=== PATIENT | male | born 1950 | race Caucasian/White ===

== ENCOUNTER 2021-06-13 06:30 | Day surgery (SDC) | payer MEDICARE, BC ==
[~2021-06-13 06:30] MED LIST: Midazolam 1 MG/ML 2 ML SDV ONE; fentaNYL 100 MCG/2 ML SDV ONE
[2021-06-13] MEDS ORDERED: fentaNYL 100 MCG/2 ML SDV IV ONE ×3 (06:31→07:46)
[2021-06-13] MEDS ORDERED: Midazolam 1 MG/ML 2 ML SDV IV ONE ×7 (06:31→08:06)
[2021-06-13] MEDS ORDERED: Sodium Chloride 0.9% 10 ML Syringe FLUSH PRN (07:35)
[2021-06-13] MEDS ORDERED: Dextrose 5%-0.45% NaCl 1,000 ML IV SCH (07:45)
--- NOTE | 2021-06-13 09:17 | OR ---
DATE: 06/13/2021 PROCEDURES: Total colonoscopy, narrow band imaging, and cold snare polypectomy. INSTRUMENT USED: PCF-H190DL Olympus video colonoscope. PREMEDICATIONS: Fentanyl 100 mcg intravenous, Versed 4 mg intravenous. Nasal O2 cannula. The procedure was done under pulse oximetry, BP recording, and finance specialist. INDICATION: The patient with positive FIT. Colonoscopic examination is done for detection of any polypoid lesions and removal, endoscopic hemostasis therapy if needed. DESCRIPTION OF PROCEDURE: Initial rectal exam was unremarkable. Rigid anoscopy was normal. The colonoscope was passed with ease. In the distal rectum, 5 mm sized benign-appearing polyp was noted, NBI views were obtained, cold snare polypectomy was done, the tissue was retrieved and sent for histopathology. The scope was passed with relative ease up to the ileocecal area. Photographs were taken of the normal-appearing cecum identified by landmarks of appendiceal orifice and double-bulged ileocecal folds. No bleeding was noted from any of the visualized areas at the commencement of the examination. The bowel preparation was found to be adequate, [place] scale 2 in right and left colon, 3 in transverse colon, total score 7. No stricture. No vascular ectasia. No large isolated ulcerations seen. No evidence of diffuse inflammatory bowel disease in the form of friability, contact bleeding, or ulcerations. Probing the proximal sides of folds and flexures using adequate distention and clearing up the stool material, withdrawal of the scope was made, cecum to rectum time over 9 minutes. No bleeding was noted from any of the visualized areas at the completion of examination. IMPRESSION: Rectal polyp. The patient tolerated the procedure well. [facility] /[id number]
== END 2021-06-13 10:26 | disposition home or self-care (01) ==
LOC: DL.ENDO 06:30
PROVIDERS: ATTEND Internal Medicine Gastroenterology
DX: D12.8 Benign neoplasm of rectum (principal); E66.09 Other obesity due to excess calories; I10 Essential (primary) hypertension; R73.9 Hyperglycemia, unspecified; Z98.890 Other specified postprocedural states; Z01.812 Encounter for preprocedural laboratory examination; Z20.822 Contact with and (suspected) exposure to COVID-19; Z68.41 Body mass index [BMI] 40.0-44.9, adult
CPT/HCPCS: 88305; J2250; J3010; J7042; U0002